=== PATIENT | female | born 1990 | race Caucasian/White ===

== ENCOUNTER 2024-01-11 12:13 | Emergency (ER) | payer OTHER, SELFPAY ==
--- NOTE | ~2024-01-11 | XR_ITS ---
Clinical Indication: Cough PA and lateral views of the chest: Comparison: None Findings: The lungs are clear, without evidence of focal consolidation or pleural effusion. Cardiome diastinal silhouette is within normal limits. Bones and soft tissues are unremarkable. Impression: Normal chest. Reviewed, dictated and finalized at location . T TIME NANNY Impression: Normal chest.
--- NOTE | 2024-01-11 12:36 | ED_ITS ---
HPI - URI/Sore Throat General Chief Complaint: Upper Respiratory Infection Stated Complaint: chest congestion, nasal drainage Time Seen by Provider: 01/11/24 12:29 Source: patient Mode of arrival: ambulatory Limitations: no limitations History of Present Illness HPI Narrative: Tyra is a 33-year-old female patient presenting to the clinic today with complaints chest congestion and nasal drainage x2 days. She reports she was working down in her mother's basement to over the summer-she was cleaning and suspected that there was some black mold in the basement. Started having some shortness of breath- this prompted her to come into the clinic. No history of asthma. Patient does not smoke. History hyperlipidemia, hypertension, and type 2 diabetes. States she wants to be checked for pneumonia or bronchitis. MD elicited complaint: cough, nasal congestion and other (Chest congestion) Related Data Home Medications Medication Instructions Recorded Confirmed atorvastatin 20 mg tablet 20 mg PO DAILY 01/11/24 01/11/24 empagliflozin 10 mg tablet 10 mg PO DAILY 01/11/24 01/11/24 (Jardiance) lisinopril 5 mg tablet 5 mg PO DAILY 01/11/24 01/11/24 metformin 500 mg tablet,extended 1,500 mg PO DAILY 01/11/24 01/11/24 release 24 hr tirzepatide 2.5 mg/0.5 mL 2.5 mg subcut WEEKLY 01/11/24 01/11/24 subcutaneous pen injector (Mounjaro) Allergies Allergy/AdvReac Type Severity Reaction Status Date / Time No Known Allergies Allergy Verified 01/11/24 12:50 Review of Systems Review of Systems: Pertinent positives per HPI. Patient denies any fever, chills, rash, headache, visual changes, dizziness, chest pain, palpitations, nausea, vomiting, diarrhea, constipation, abdominal pain, or any urinary issues. PMFSH Comments At the time of my signature, I reviewed and agree with the nursing past medical, surgical, social, and family history. There is no relevant family history per tinent to the patient complaint. Exam Narrative: General: Well-developed, morbidly obese, in no apparent distress Head: Normocephalic, atraumatic Eyes: Pupils equally round and reactive to light bilaterally, EOM intact, sclera and conjunctive clear, no discharge, lids normal Ears: TMs intact and clear, ear canals clear, no drainage, grossly hearing normal. Nose: Nares patent, no discharge, no inflammation, no sinus tenderness. Mouth: Oral pharynx without lesions or masses, good dentition, MMM. Neck: Supple, trachea midline, no enlargement of anterior or posterior cervical nodes, no thyroid masses or goiter palpable. Cardio: Regular rate and rhythm, s1 and s2 normal, no murmur appreciated. Resp: Clear to auscultation bilaterally, no rhonchi, rales, wheezing or rubs Course Course Emergency Course: Portions of this record may have been created with voice recognition software. Level of Care: Express Care Visit Vital Signs Vital signs: Vital signs reviewed MDM - URI/Sore Throat MDM Narrative Medical decision making narrative: At the time of visit patient is resting comfortably on the exam table. Patient appears to be nontoxic. Diagnostics: Chest x-ray is negative for any acute cardiopulmonary process. Plan: I suspect patient has URI with cough and congestion. Prescription for albuterol inhaler was sent to the pharmacy Supportive measures were discussed with the patient and they voiced understanding discharge instructions and agrees to treatment plan. Return precautions reviewed Differential Diagnosis Differential diagnosis: Likely upper respiratory infection, otitis media, sinusitis, viral infection, bronchitis, influenza, pharyngitis and other (COVID) Imaging Data Radiologist's impression: ITS Impressions Chest X-Ray 01/11/24 13:03 Impression: Normal chest. Discharge Plan Discharge Clinical Impression: Upper respiratory infection with cough and congestion Patient Disposition: Home, Self-Care Condition: Stable Instructions: Antibiotic Form, Upper Respiratory Infection (ED) Additional Instructions: Chest x-rays negative for any sign of bronchitis or pneumonia. Take prescription medications only as prescribed-albuterol inhaler May take Sudafed as needed for nasal congestion May take DayQuil/NyQuil for cold/flu symptoms Increase fluids and stay well hydrated Tylenol/motrin for pain/fever Flonase and OTC antihistamines as directed Vicks vapor rub to open sinuses Sinus rinses for congestion Cepacol spray, cough drops, throat lozenges, warm tea with honey/lemon, gargle salt water to soothe throat BRAT diet for diarrhea Clear liquids x 24 hours then advance as tolerated for nausea/vomiting Go to the ED if you develop a worsening in your condition- high fever not controlled by Tylenol or Motrin, dehydration, weakness, lethargy, shortness of breath, or chest pain. Follow up with your PCP in 3-5 days if symptoms persist. Prescriptions: New albuterol sulfate 90 mcg/actuation HFA aerosol inhaler 2 puff inhalation Q4-6H PRN (Reason: shortness of breath or wheezing) 30 Days Qty: 8.5 0RF No Action atorvastatin 20 mg tablet 20 mg PO DAILY lisinopril 5 mg tablet 5 mg PO DAILY metformin 500 mg tablet extended release 24 hr 1,500 mg PO DAILY Jardiance 10 mg tablet 10 mg PO DAILY Mounjaro 2.5 mg/0.5 mL pen injector 2.5 mg SUBCUT WEEKLY Follow-up/Referrals: Julian,Salomón Bartlett MD [Primary Care Provider] - Time of Disposition: 13:12 Quality NIHSS Nursing Documentation ED NIHSS nursing documentation: reviewed/agree
[2024-01-11 12:53] VITALS: BP 130/85; PULSE 106; RESP 16; TEMP 36.7; O2SAT 99
== END 2024-01-11 13:16 | disposition home or self-care (01) ==
PROVIDERS: Emergency Provider Nurse Practitioner Family; PCP Internal Medicine
DX: J06.9 Acute upper respiratory infection, unspecified (principal); R05.9 Cough, unspecified; E11.9 Type 2 diabetes mellitus without complications; E78.00 Pure hypercholesterolemia, unspecified
CPT/HCPCS: 71046; 99203; G0463

== ENCOUNTER 2024-08-12 11:37 | Emergency (ER) | payer OTHER, SELFPAY ==
--- NOTE | ~2024-08-12 | XR_ITS ---
XR foot LT min 3V Ordering provider: Adam Chandler APRN History: . fall yesterday, Lt great toe pain, distal dorsal pain . Comparison: None. FINDINGS: BONES: Fracture at the base of the distal phalanx of the left big toe is noted medially. No displacement see n. JOINT SPACES: Narrowing of the proximal and distal interphalangeal joints. No tarsal coalition. SOFT TISSUES: Ossification of the insertion of the tendo Achilles. IMPRESSION: Fracture at the base of the distal phalanx of the left big toe.. Reviewed, dictated and finalized at location A.
[2024-08-12 11:51] VITALS: BP 145/77; PULSE 95; RESP 14; TEMP 36.6; O2SAT 100
--- NOTE | 2024-08-12 12:44 | ED_ITS ---
HPI - Extremity Injury (Lower) General Chief Complaint: Extremity Injury, Lower Stated Complaint: Fell, think I broke left big toe Time Seen by Provider: 08/12/24 11:55 Source: patient and RN notes reviewed Mode of arrival: ambulatory Limitations: no limitations History of Present Illness HPI Narrative: 33-year-old female Presents Express Care complaining of injury to left toe. Patient reports was walking outside yesterday when she tripped in mud. Patient fell for landing on her left knee injuring her left foot. Patient denies any her head, loss of consciousness, neck pain, back pain, abdominal pain, nausea, vomiting, vaginal bleeding, any other injuries. Patient is 9 weeks . Patient denies any concerns about her . Patient's tetanus is up-to-date. Patient is complaining left great toe pain and swelling. Patient says she is able to bear weight on her left foot but is tender. Patient does have abrasion on her left knee but denies any pain to her left knee. Patient has a decent significant past medical history. Related Data Home Medications ?Medication ?Instructions ?Recorded ?Confirmed ?Last Taken ?Type atorvastatin 20 mg tablet 20 mg PO DAILY 01/11/24 08/12/24 Unknown History empagliflozin 10 mg tablet 10 mg PO DAILY 01/11/24 08/12/24 Unknown History (Jardiance) lisinopril 5 mg tablet 5 mg PO DAILY 01/11/24 08/12/24 Unknown History metformin 500 mg tablet,extended 1,500 mg PO DAILY 01/11/24 01/11/24 Unknown History release 24 hr tirzepatide 2.5 mg/0.5 mL 2.5 mg subcut WEEKLY 01/11/24 08/12/24 Unknown History subcutaneous pen injector (Mounjaro) DAILY 08/12/24 Unknown History aspirin 81 mg tablet,delayed 81 mg PO DAILY 08/12/24 08/12/24 Unknown History release (Adult Low Dose Aspirin) Allergies Allergy/AdvReac Type Severity Reaction Status Date / Time No Known Allergies Allergy Verified 08/12/24 11:59 Review of Systems Review of Systems: CONSTITUTIONAL: Denies fever, chills, or sweats. EYES: Denies visual changes, redness, or discharge. ENT: Denies rhinorrhea, congestion, sore throat, or otalgia. CARDIOVASCULAR: Denies chest pain, palpitations, or edema. RESPIRATORY: Denies cough or dyspnea. GASTROINTESTINAL: Denies abdominal pain, nausea, vomiting, or diarrhea. GENITOURINARY: Denies dysuria or hematuria. SKIN: Denies rash, wound, or itching. Positive for abrasion to the left knee. MUSCULOSKELETAL: Denies back pain, joint pain, or myalgia. Positive for left great toe injury and swelling NEUROLOGIC: Denies headache, numbness, or weakness. PSYCHIATRIC: Denies anxiety or depression. All other systems reviewed are negative, except as documented in HPI. PMFSH Comments At the time of my signature, I reviewed and agree with the nursing past medical, surgical, social, and family history. There is no relevant family history pertinent to the patient complaint. Exam Narrative: GENERAL: This is a well-nourished, well-developed adult, in no apparent distress. They are non ill-appearing, nontoxic appearing. HEAD: normocephalic, atraumatic. EYES: Sclera clear/white. Vision is grossly intact. Conjunctiva normal. Extraocular movement intact. EARS: External ears normal Hearing grossly intact. NOSE: External nose normal THROAT: Mucous membranes moist NECK: Neck supple CARDIOVASCULAR: Regular rate and rhythm RESPIRATORY: Respiratory rate normal, respiratory effort nonlabored, no respiratory distress NEURO: awake, alert, and oriented to person, place and time. There were no obvious focal neurologic abnormalities. EXTREMITIES: Left foot: No obvious deformity, injury, swelling, bruising, redness to foot. There is swelling and bruising to the left great toe. It is tender to palpate. Normal dorsiflexion plantar flexion left foot. Negative Lockwood's test. Capillary refill less than 3 seconds. Left pedal Pulse 2 +palpable. Normal sensation. Neurovascular status intact distal injury. Patient can move all her toes. SKIN: Left knee: There is abrasion to the anterior surface is knee. No surrounding cellulitis induration, no area of fluctuance, no exudate. No bony tenderness. Valgus or varus laxity. Left knee nontender through full range of motion. BACK: Nontender without deformity. Course Course Emergency Course: Portions of this record may have been created with voice recognition software Level of Care: Express Care Visit Vital Signs Vital signs: Vital Signs Temperature 98 F 08/12/24 11:51 Pulse Rate 95 08/12/24 11:51 Respiratory Rate 14 08/12/24 11:51 Blood Pressure 145/77 H 08/12/24 11:51 Pulse Oximetry 100 08/12/24 11:51 Oxygen Delivery Room Air 08/12/24 11:51 Temperature 98 F 08/12/24 11:51 Pulse Rate 95 08/12/24 11:51 Respiratory Rate 14 08/12/24 11:51 Blood Pressure 145/77 H 08/12/24 11:51 Pulse Oximetry 100 08/12/24 11:51 Oxygen Delivery Room Air 08/12/24 11:51 Reviewed MDM - Extremity Injury (Lower) MDM Narrative Medical decision making narrative: Tetanus is up-to-date. Patient denies any abdominal injury or any injury that is affecting her . Patient denies any abdominal pain, vaginal bleeding, nausea, abdominal cramping or any other symptoms. X-ray of left foot showed nondisplaced fracture the base of the distal phalanx of the left great to e. Patient placed in a postop shoe. Patient has a follow-up with OB coming up, advised her to contact OB about her fall, patient has no complaints today. Discussed physical exam findings. Advised supportive measures and signs/symptoms to go to the ER. Pt is appropriate for outpt treatment and f/u. Differential Diagnosis Differential diagnosis: Likely fracture of toe and other (Foot fracture, toe sprain, complication) Imaging Data Radiologist's impression: ITS Impressions Foot X-Ray 08/12/24 12:58 IMPRESSION: Fracture at the base of the distal phalanx of the left big toe.. Critical Care Time Critical Care Time Critical Care Time: No Discharge Plan Discharge Clinical Impression: Fracture of distal phalanx of great toe Qualifiers: Encounter type: initial encounter Fracture type: closed Fracture alignment: nondisplaced Laterality: left Qualified Code(s): S92.425A - Nondisplaced fracture of distal phalanx of left great toe, initial encounter for closed fracture Abrasion of knee, left Qualifiers: Encounter type: initial encounter Qualified Code(s): S80.212A - Abrasion, left knee, initial encounter Patient Disposition: Home Condition: Stable Instructions: Toe Fracture (ED) Additional Instructions: Your x-ray of your left foot showed a fracture at the base appear distal phalanx of your left great toe. Please wear the postop shoe when ambulating. You may bear weight as tolerated. You may apply ice to help with swelling 20 minutes at a time a few times a day. You may take Tylenol as needed for pain. Elevate your foot when resting. Follow-up with your PCP or an orthopedist for further evaluation and management of your toe fracture. Please contact your OB about your fall. If he develops any abdominal pain, vaginal bleeding, redness, swelling, discharge, pain from your wound, or any other concerns please go to the ER immediately. Patient Language: Arabic Prescriptions: No Action atorvastatin 20 mg tablet 20 mg PO DAILY lisinopril 5 mg tablet 5 mg PO DAILY metformin 500 mg tablet extended release 24 hr 1,500 mg PO DAILY Jardiance 10 mg tablet 10 mg PO DAILY Mounjaro 2.5 mg/0.5 mL pen injector 2.5 mg SUBCUT WEEKLY albuterol sulfate 90 mcg/actuation HFA aerosol inhaler 2 puff inhalation Q4-6H PRN (Reason: shortness of breath or wheezing) 30 Days Qty: 8.5 0RF DAILY aspirin [Adult Low Dose Aspirin] 81 mg tablet,delayed release (DR/EC) 81 mg PO DAILY Follow-up/Referrals: Julian,Salomón Bartlett MD [Primary Care Provider] - Roshan Hurtado MD [Physician] - Time of Disposition: 13:15
== END 2024-08-12 13:26 | disposition home or self-care (01) ==
PROVIDERS: PCP Internal Medicine
DX: O9A.211 Injury, poisoning and certain other consequences of external causes complicating pregnancy, first trimester (principal); Z3A.09 9 weeks gestation of pregnancy; S92.425A Nondisplaced fracture of distal phalanx of left great toe, initial encounter for closed fracture; W01.0XXA Fall on same level from slipping, tripping and stumbling without subsequent striking against object, initial encounter; S80.212A Abrasion, left knee, initial encounter; O16.1 Unspecified maternal hypertension, first trimester; O99.281 Endocrine, nutritional and metabolic diseases complicating pregnancy, first trimester; E78.00 Pure hypercholesterolemia, unspecified; O24.911 Unspecified diabetes mellitus in pregnancy, first trimester; Z79.84 Long term (current) use of oral hypoglycemic drugs
CPT/HCPCS: 73630; 99214; G0463

== ENCOUNTER 2024-10-22 08:30 | Outpatient (CLI) | payer OTHER, SELFPAY ==
--- OUTSIDE RECORDS SUMMARY | 2018-12-28 01:53 | XMS_ITS | Continuity of Care Document ---
Author Organization [facility] Address [address] [place] [phone] Phone Care Team Providers Care Auto Body Mechanic Apprentice Name Role Phone Amaury Sue MD Unavailable Unavailable Medications Medication Instructions Dosage Effective Dates (start - stop) Status Comments Zithromax Z-Ethan 250 mg tablet take 2 tablet by oral route every day for 1 day then 1 tablet (250 mg) by oral route once daily for 4 days 500 MG - No Longer Active Advance Directives Directive Yes / No Effective Date File Name No Information Encounters Encounter Description Practice Location Reason(s) For Visit Diagnoses Date Provider Providers Copied on Encounter [facility], [address] [place] [address], [place], [place], [id number], [phone] No Information [address] [facility]. [address] [place] [address], [id number] , . tel: [phone] Family History Family Member Type Diagnosis Age At Onset No Information Payers Payer name Insurance type Covered republican ID Authoriza tion(s) No Information Social History Type Description Quantity Date Captured Comments Sex Female Smoking Status No Information Chief Complaint And Reason For Visit No Information Reason For Referral Reason For Referral No Information History Of Present Illness Encounter Date Complaint History Of Prese nt Illness No Information Functional Status Date Functional Assessmen t No Information Instructions Date Instruction Additional Infor mation No Information Assessments Type Assessment Date No Information Patient Care Teams Name Effective Dates (start - stop) Status Members No Information
--- OUTSIDE RECORDS SUMMARY | 2024-10-20 07:20 | XMS_ITS | Encounter Summary ---
Author Organization [facility] Healthcare Address [address] [place] [address] Care Team Providers Care Grid Maker Name Role Phone Salomón Jordan MD Primary Care Provider [phone] Charlene Sanches MD Unavailable [phone] Reason for Referral * Diagnostic Imaging (Routine) - Pending Review Specialty Diagnoses / Procedures Referred By Oliverio hurst Referred To Contact Diagnoses Encounter for follow-up ultrasound of anatomy Procedures US Ob Limited Cynthia Kay MD [address] [address] Phone: tel: fax: [facility] (All Locations) Referral ID Status Reason Start Date Expiration Date V isits Requested Visits Authorized [id number] Pending Review 10/20/2024 11/19/2025 1 1 * Diagnostic Imaging (Routine) - Closed Specialty Diagnoses / Procedures Referred By Oliverio hurst Referred To Contact Diagnoses Pre-existing type 2 diabetes mellitus during , antepartum Procedures US OB detail anatomy single or first gestation Cynthia Kay MD [address] [address] Phone: tel: fax: [facility] (All Locations) Referral ID Status Reason Start Date Expiration Date Visits Re quested Visits Authorized [id number] Closed 08/30/2024 09/29/2025 1 1 Reason for Visit * Diagnostic Imaging (Routine) - Closed Specialty Diagnoses / Procedures Referred By Oliverio t Referred To Contact Diagnoses Pre-existing type 2 diabetes mellitus during , antepartum Procedures US OB detail anatomy single or first gestation Cynthia Kay MD [address] [facility] [address] [place] [address] Phone: tel: fax: [facility] (All Locations) Referral ID Status Reason Start Date Expiration Date Visits Re quested Visits Authorized [id number] Closed 08/30/2024 09/29/2025 1 1 Encounter Details Date Type Department Care Team (Latest Contact Info) Description 10/20/2024 7:20 AM CDT - 10/20/2024 11:59 PM CDT Hospital Encounter [facility] - Ultrasound [address] [facility], 7th Floor, [address] [place] [address] Encounter for follow-up ultrasound of anatomy (Primary Dx); Pre-existing type 2 diabetes mellitus during , antepartum Discharge Disposition: Discharge to home or self care Social History Tobacco Use Types Packs/Day Years Used Date Smoking Tobacco: Never Smokeless Tobacco: Never AUDIT-C Answer Date Recorded Q1: How often do you have a drink containing alcohol? Never 08/30/2024 Q2: How many drinks containi ng alcohol do you have on a typical day when you are drinking? Patient does not drink Q3: How often do you have si x or more drinks on one occasion? 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 Gender Identity Female 03/07/2021 4:29 PM RESEARCH ASSOCIATE [employer] Sexual Orientation Straight 11/08/2020 9: 49 AM CDT documented as of this encounter Medications at Time of Discharge acetone, urine, test strip Check urine ketones if you blood sugar is greater that 200 100 strip 2 11/06/2020 alcohol swabs pads, medicated Apply 1 each topically 4 (four) times a day 100 each 3 08/30/2024 aspirin 81 mg enteric coated tablet Take 81 mg by mouth daily BD Insulin Syringe Ultra-Fine 1 mL 30 gauge x 1/2 syringe Use to inject NPH insulin in the morning and at bedtime 100 each 3 12/19/2020 blood glucose diagnostic strip 1 each by other route 4 (four) times a day 100 strip 11 08/30/2024 blood-glucose sensor (Dexcom G7 Sensor) device 1 Units continuously Change sensor every 10 days 3 each 11 08/30/2024 blood-glucose,rec eiver,cont (Dexcom G7 Transplant Nurse Practitioner) misc 1 Units continuously 1 each 08/30/2024 cholecalciferol (VITAMIN D-3) 3,000 unit tablet Take 5,000 Units by mouth daily FreeStyle Radames 14 Day [place] misc USE CONTINUOUSLY TO TEST 4 TIMES A DAY 10/27/2020 FreeStyle Radames 14 Day Sensor kit USE CONTINUOUSLY TO TEST BLOOD SUGARS 4 TIMES A DAY 10/27/2020 glucagon (BAQSIMI) 3 mg/actuation spray,non-aerosol Indications:patie nt with diabetes mellitus at risk of hypoglycemia Administer 1 spray into one nostril as needed (Hypoglycemia) 2 each 3 08/30/2024 insulin aspart (NovoLOG) 100 unit/mL (3 mL) pen for injection Inject 12 units with breakfast, 20 units with lunch and 26 units with dinner 30 mL 3 03/15/2021 insulin lispro (HumaLOG, ADMELOG) 100 unit/mL pen for injection Inject 6 units under the skin with breakfast, lunch and dinner. 15 mL 3 09/13/2024 lancets 33 gauge misc 1 Units 4 (four) times a day 100 each 11 08/30/2024 levothyroxine (SYNTHROID) 25 mcg tablet 01/15/2021 lisinopriL (PRINIVIL,ZESTRIL ) 5 mg tablet 11/30/2020 metFORMIN (GLUCOPHAGE) 1,000 mg tablet metformin 1,000 mg tablet TAKE 1 TABLET BY MOUTH TWICE DAILY 10/09/2009 pen needle, diabetic 33 gauge x 5/32 needle 5 INJECTIONS DAILY DIRECTED 200 each 2 08/30/2024 PNV no.95/ferrous fum/folic ac ( ORAL) Take by mouth vit D3-vit X-[id number]-[id number] [id number] mxhf-uce-hm-mg tablet Take by mouth documented as of this encounter Discharge Disposition Disposition Code Departure Means Destination Discharge to home or self care documented in this encounter Plan of Treatment Scheduled Orders Name Type Priority Associated Diagnoses Orde r Schedule US Ob Limited Imaging Schedule Routine , Read Routine (OP Routine) Encounter for follow-up ultrasound of anatomy Expected: 11/02/2024, Expires: 10/20/2025 documented as of this encounter Procedures Procedure Name Priority Date/Time Associated Diagnosis Comments US OB DETAIL ANATOMY SINGLE OR FIRST GESTATION Schedule Routine, Read Routine (OP Routine) 10/20/2024 7:20 AM CDT Pre-existing type 2 diabetes mellitus during , antepartum documented in this encounter Results * US OB detail anatomy single or first gestation (10/20/2024 7:20 AM CDT) Fetus# Fetus1 VIEWPOINT Estimated Weight 278 g&grams VIEWPOINT Placenta Details posterior, Previa-no, no placental masses VIEWPOINT Presentation Vertex VIEWPOINT Anatomical Region Laterality Modality Body N/A Ultrasound 10/20/2024 7:21 AM CDT Impressions 10/20/2024 9:12 AM CDT Single IUP at 19w 1d for specialized anatomic assessment. 1. The biometry is appropriate for gestational age. EFW 47%. 2. The anatomy assessment is incomplete as above. The structures that were visualized today appear normal. No major structural malformations identified within the limits of ultrasound. 3. Transvaginal imaging demonstrates a normal cervical length. Narrative Procedure Note Martha Felix MD - 10/20/2024 IMPRESSION: Single IUP at 19w 1d for specialized anatomic assessment. 1. The biometry is appropriate for gestational age. EFW 47%. 2. The anatomy assessment is incomplete as above. The structures that werevisualized today appear normal. No major structural malformationsidentified within the limits of ultrasound. 3. Transvaginal imaging demonstrates a normal cervical length. Cynthia Kay MD IMG OB US PROCEDUR ES Final Result documented in this encounter Visit Diagnoses Diagnosis Encounter for follow-up ultrasound of anatomy- Primary Pre-existing type 2 diabetes mellitus during , antepartum documented in this encounter Care Teams Grid Maker Relationship Specialty Start Date End Date Salomón Jordan MD PCP - General Internal Medicine 10/27/20 Charlene Sanches MD [address] [place] [address] Referring Physician Obstetrics and Gynecology 10/27/20 documented as of this encounter
--- NOTE | 2024-10-22 | ECHO_ITS ---
Patient Info Name: Solange Ozuna Age: 34 years : 1990 Gender: Female Ht: 64 in Wt: 205 lbs BSA: 2.09 m2 HR: 88 bpm BP: 99 / 65 mmHg Technical Quality: Good Exam Date: 10/22/2024 9:04 AM Patient Status: O Admit Date: 10/22/2024 Exam Type: CA echo doppler color flow Complete two-dimensional, color flow and Doppler transthoracic echocardiogram is performed. Medical Insurance Biller: Neda Gomez Attending Provider: Tanya Dunne Summary 1. Complete two-dimensional, color flow and Doppler transthoracic echocardiogram is performed. 2. Left ventricular chamber dimension is normal. 3. Left ventricular systolic function is normal, estimated at 60-65. 4. E/e' 9 is minimally elevated. 5. There is trace mitral valve regurgitation. Left Ventricle E/e' 9 is minimally elevated. Left ventricular chamber dimension is normal. Left ventricular systolic function is normal, estimated at 60-65. The left ventricular diastolic function is normal. Right Ventricle Right ventricular chamber dimension is normal. Right ventricular systolic function is normal and with normal TAPSE 2.3 cm. Left Atria Left atrial chamber dimension is normal. Right Atria Right atrial chamber dimension is normal. Aortic Valve The aortic valve is trileaflet. There is no aortic valve stenosis. There is no aortic valve regurgitation. Pulmonic Valve There is no pulmonic regurgitation. Mitral Valve There is no mitral valve stenosis. There is trace mitral valve regurgitation. Tricuspid Valve There is no tricuspid valve regurgitation. Pericardium/Pleural There is no pericardial effusion. Inferior Vena Cava Normal inferior vena cava with >50% collapse upon inspiration consistent with normal right atrial pressure, 5 mmHg. Aorta The aortic root size at the sinus of Valsalva is normal. Left Ventricular Outflow Tract Name Value Normal LVOT 2D LVOT Diameter 2.0 cm LVOT Doppler LVOT Peak Velocity 140 cm/s LVOT Peak Gradient 8 mmHg LVOT Mean Gradient 5 mmHg LVOT VTI 29 cm LVOT Stroke Volume 91 ml LVOT CO 8.0 l/min LVOT CI 3.8 l/min/m2 Pulmonic Valve Name Value Normal RVOT Doppler RVOT Peak Velocity 79 cm/s RVOT Peak Gradient 2 mmHg PV Doppler PV Peak Velocity 155 cm/s PV Peak Gradient 10 mmHg Mitral Valve Name Value Normal MV Diastolic Function MV E Peak Velocity 121 cm/s MV A Peak Velocity 95 cm/s MV E/A 1.3 MV Decel Time (PW) 238 ms MV Annular TDI MV E/e' (Septal) 11.1 MV E/e' (Lateral) 7.8 MV E/e' (Average) 9.5 Tricuspid Valve Name Value Normal Estimated PAP/RSVP RA Pressure 5 mmHg <=5 Aortic Valve Name Value Normal AV Doppler AV Peak Velocity 183 cm/s AV Peak Gradient 13 mmHg AV Area (Cont Eq Madi) 2.4 cm2 AV DI (Madi) 0.76 AV Regurgitation 2D LVOT Area 3.1 cm2 Ventricles Name Value Normal LV Dimensions 2D/MM IVS Diastolic Thickness (2D) 1.0 cm 0.6-1.0 LVID Diastole (2D) 4.7 cm 3.8-5.2 LVIW Diastolic Thickness (2D) 1.0 cm 0.6-0.9 LVID Systole (2D) 3.2 cm 2.2-3.5 LVOT Diameter 2.0 cm LV Mass (2D Cubed) 163.29 g 67.00-162.00 LV Mass Index (2D Cubed) 78 g/m2 43-95 Relative Wall Thickness (2D) 0.42 <=0.42 LV Fractional Shortening/Ejection Fraction 2D/MM LV Fractional Shortening (2D) 33 % 27-45 LV EF (2D Teichpaulyz) 61 % LV Diastolic Volume (4C MOD) 93 ml LV EF (4C MOD) 62 % LV Diastolic Volume (2C MOD) 111 ml LV EF (2C MOD) 55 % LV Diastolic Volume (BP MOD) 104 ml 46-106 LV Diastolic Volume Index (BP MOD) 50 ml/m2 29-61 LV Systolic Volume (BP MOD) 45 ml 14-42 LV Systolic Volume Index (BP MOD) 21 ml/m2 8-24 LV EF (BP MOD) 57 % 54-74 LV Diastolic Length (4C) 8.9 cm LV Systolic Length (4C) 7.6 cm LV Stroke Volume (4C MOD) 57 ml Atria Name Value Normal LA Dimensions LA Volume (4C A-L) 55 ml LA Volume (BP A-L) 52 ml RA Dimensions RA Systolic Major R[place]on Length (4C) 4.9 cm 2.2-2.8 RA Area (4C) 11.1 cm2 <=18.0 Report Signatures
--- OUTSIDE RECORDS SUMMARY | 2024-10-22 08:35 | XMS_ITS | Clinical Summary ---
Author Organization [facility] Address [facility] [place] [address] Care Team Providers Care Director Outpatient Services Name Role Phone Salomón Jordan MD Primary Care Provider Charlene Sanches MD Unavailable [phone] Allergies Active Allergy Reactions Criticality Noted Date Comments Cat Dander Hives Medium 08/30/2024 Medications metFORMIN (GLUCOPHAGE) 1,000 mg tablet metformin 1,000 mg tablet TAKE 1 TABLET BY MOUTH TWICE DAILY 0 Active FreeStyle Radames 14 Day Hosmer misc USE CONTINUOUSLY TO TEST 4 TIMES A DAY 1 Active FreeStyle Radames 14 Day Sensor kit USE CONTINUOUSLY TO TEST BLOOD SUGARS 4 TIMES A DAY 1 Active vit D3-vit Z-fnltsungh-aceq [phone] dozc-ldj-jv-mg tablet Take by mouth Active acetone, urine, test strip Check urine ketones if you blood sugar is greater that 200 100 strip 2 1 Active lisinopriL (PRINIVIL,ZESTRI L) 5 mg tablet 1 Active aspirin 81 mg enteric coated tablet Take 81 mg by mouth daily Active PNV no.95/ferrous fum/folic ac ( ORAL) Take by mouth Active BD Insulin Syringe Ultra-Fine 1 mL 30 gauge x 1/2 syringe Use to inject NPH insulin in the morning and at bedtime 100 each 3 1 Active levothyroxine (SYNTHROID) 25 mcg tablet 1 Active insulin aspart (NovoLOG) 100 unit/mL (3 mL) pen for injection Inject 12 units with breakfast, 20 units with lunch and 26 units with dinner 30 mL 3 2 Active cholecalciferol (VITAMIN D-3) 3,000 unit tablet Take 5,000 Units by mouth daily Active alcohol swabs pads, medicated Apply 1 each topically 4 (four) times a day 100 each 3 5 Active lancets 33 gauge misc 1 Units 4 (four) times a day 100 each 11 5 Active blood glucose diagnostic strip 1 each by other route 4 (four) times a day 100 strip 11 5 Active glucagon (BAQSIMI) 3 mg/actuation spray,non-aeroso lIndications:pat ient with diabetes mellitus at risk of hypoglycemia Administer 1 spray into one nostril as needed (Hypoglycemia) 2 each 3 5 Active blood-glucose,re ceiver,cont (Dexcom G7 Biochemistry Technologist) misc 1 Units continuously 1 each 5 Active blood-glucose sensor (Dexcom G7 Sensor) device 1 Units continuously Change sensor every 10 days 3 each 11 5 Active insulin glargine 100 unit/mL (3 mL) pen for injectionIndicat ions:Pre-existin g type 2 diabetes mellitus during , antepartum Inject 16 Units under the skin nightly 4.8 mL 5 Active pen needle, diabetic 33 gauge x 5/32 needle 5 INJECTIONS DAILY DIRECTED 200 each 2 5 Active insulin lispro (HumaLOG, ADMELOG) 100 unit/mL pen for injection Inject 6 units under the skin with breakfast, lunch and dinner. 15 mL 3 5 Active Active Problems Problem Noted Date Diagnosed Date Hypothyroid in , antepartum 08/29/2024 Overview (10/20/2024): History: History of Graves/hyperthyroidism?: No Pre- regimen: None Previously counseled Current regimen: None Plan: [x] Maintain TSH within normal reference range throughout [x] Repeat TSH at least once a trimester if well controlled [x] T1: 3.21 [] T2: [] T3: [] If uncontrolled or if making dose adjustments to medication, repeat every 4-6 weeks until controlled History of section complicating pregnan cy 08/18/2024 Overview (08/31/2024): Underwent IOL at 38w3d for cHTN and T2DM. Arrest of dilation at 6cm with intolerance of labor. Uncomplicated primary CS. See operative note in CareEverywhere 06/06/2021. Strongly desires repeat CS. Delivery planning per primary OB. Supervision of high-risk , first alyssa smith 08/18/2024 Overview (10/20/2024): [x] Co-management [x] Blue Team Referring Provider: Dedrick Dunne [phone] [] PostBeyond or Medicare Insurance [x] Dating Criteria: [place] 07/28/24 with 03/15/24 [x] Labs: Rh [A+], Ab [negative], Rubella [immune], HIV [non-reactive], HepBSAg [non-reactive], HepBSAb [not done], HepBCAb [not done], RPR [non- reactive], Hep C [non-reactive], Varicella [not done], GC/CT [negative/negative], trich [neg]- [] Aneuploidy Screening: counseled and declines [] Carrier Screening: counseled and declines [] Hgb electrophoresis: [x] CBC/Hgb: 13.3/41.4/plt 263 [x] Hgb A1c 07/22/24: 6.1 [x] UCx: 08/16/24: no growth [x] Pap: 07/28/24: NILM; HPV negative [x] LD ASA (if indicated): [] EPDS [ ]; PNBHS referral (if indicated): 2nd Trimester [x] Anatomy ultrasound: wnl [] CBC at 24-28wks: [] Rhogam at 28 wks (if Rh neg): 3rd Trimester [] CBC/HIV/RPR/T&S: [] GBS: [] GC/CT (if indicated): [] testing: Counseling [] MOD: [] Place of delivery: [] Epidural: [] Accepts Blood Products: [] Stop ASA: [] MOC: [] Method of feeding: [] Vp Securities (specifically which provider): [] PP Depression Discussed: [] PP visits scheduled: Vaccines [] Flu Shot (Oct-Jan): [] COVID vaccine: [] Tdap (27-36wks): [] RSV vaccine (32-36wks): [] PP HPV vaccine counseling (<=26 yo): Obesity complicating in first cece r 11/06/2020 Overview (09/10/2024): Pre- BMI: 35 Previously counseled Plan: [x] Low dose ASA starting at 12 weeks See T2DM problem for Duc and testing Assessment & Plan (01/15/2021 7:59 AM ESCROW PROCESSOR): Previously counseled Plan - testing (atarting 32 weeks for T2DM) Generalized anxiety disorder 11/03/2020 Overview (08/31/2024): Reports history of anxiety. Mood stable. Not currently on medications. Will complete counseling if she desires to start medications. Other sleep apnea 11/03/2020 Chronic hypertension affecting 021 Overview (10/20/2024): History: Diagnosis: 2020 Pre- medications: lisinopril 5mg daily Previously counseled Current medication regimen: None Plan: [x] Low dose ASA 81 mg starting at 12 weeks - taking [] Baseline preeclampsia labs (CBC, CMP, UPC 0.1)- records requested 10/20/2024 [] Baseline EKG - scheduled for Friday See T2DM problem for recommendations on serial growth US, testing, and delivery timing Assessment & Plan (05/10/2021 9:12 AM CDT): PreE precautions reviewed with patient again today. Assessment & Plan (01/15/2021 8:02 AM ESCROW PROCESSOR): - Patient previously counseled - current regimen: no medications - BP log reviewed and at goal today - Continue to monitor Pre-existing type 2 diabetes mellitus during , antepartum 11/01/2020 Overview (10/20/2024): History & Counseling Diagnosed age 16 (2007) History of DKA? None Last hemoglobin A1C: 6.1% on June 2024 Pre- regimen: Jardiance 10mg daily, metformin 1000mg BID, Mounjarno 7.5mg/0.5mL Pre- TDD of insulin: none Pre- weight: 206lbs as of 03/23/24 Home blood glucose measurements: Fasting 130-135; random ~120 S/p MFM counseling 08/30/2024 [facility] clinic accounts Current regimen: 10/20/2024- no changes Lantus 20u qHS Lispro 6 units TID with meals Plan - Physician adjusting medication dosage: MFM [x] Recommend weekly review of BG/insulin data to adjust medication dosing [x] Diabetes education [x] Glucagon prescribed - sent 08/30 [x] Referral to ophthalmology for comprehensive eye exam [] Baseline CMP, UPC, TSH- records requested [] HgbA1c qTrimester [x] 1st T: 6.1 [] 2nd T: [] 3rd T: [x] Low dose ASA starting at 12 weeks - already taking [] Baseline EKG, consider maternal ECHO (if long standing disease, other comorbidities) - EKG scheduled [x] 1st trimester anatomy US - 1T dating US normal, defer to specialized anatomy in 2T [x] Specialized anatomy ultrasound at 18-20 weeks [] echocardiogram at 20-22 weeks- scheduled [] Serial growth ultrasounds every 4 weeks- scheduled [] Twice weekly surveillance starting at 32 weeks [] insulin plan by 32 weeks [] Delivery at 44g1p-42z8t (36w0d - 38w6d if has vascular complications or diabetes is poorly controlled) Assessment & Plan (10/20/2024 9:47 AM CDT): BS reviewed with good control. Continue current regimen. Assessment & Plan (09/13/2024 2:01 PM CDT): Reviewed carb recommendations with MFM and then notified pt. Recommend breakfast 30-45g of carbs, lunch 40-60g carbs and dinner 45-60g carbs. Recommend 15g carbs with snacks 2-3 hours after meals. Will refer to diabetes education for appt with this . Plan made to start lispro 6 units with meals. Discussed taking it 10- 15 minutes before meals but only when she knows her food is actually going to be available. Discussed hypoglycemic symptoms and when to verify BS. Pt knows to treat BS <65 and notify our team for possible adjustments. She has already been rx glucagon and has that rx. Rx placed for lispro 6 units with meals. Assessment & Plan (11/06/2020 10:01 AM CDT): History Diagnosed age 17 History of DKA? no Last hemoglobin A1C: 9.0% on 10/26/20 Pre- regimen: glimepiride, metformin Counseling Reviewed with patient that type 2 diabetes is the most common form of pregestational diabetes and is characterized by peripheral insulin resistance. is generally a state of increased insulin resistance, the one exception being late first trimester when relatively higher levels of estrogen may enhance insulin sensitivity and increase the maternal hypoglycemia, especially when associated with nausea and vomiting. As such, insulin requirements will likely change during and frequent monitoring throughout . This in combination with diabetic education, exercise, and diet control will be necessary to achieve optimal glycemic control. We reviewed that goal blood glucose values are generally fasting a premeal glucose of 95 mg/dL or less and 1 hour postprandial glucose of 140 mg/dL or less. We recommend checking blood sugar fasting, before each meal, and 1 hour after eating. The patient should also check urine ketones when their glucose level exceeds 200 mg/dL and should have glucagon available in case of hypoglycemic episodes. We also reviewed the increased maternal and risks associated with type 2 diabetes in . Discussed that major congenital anomalies (cardiac, neurologic and skeletal) are the leading cause of mortality in pregnancies complicated by diabetes and is directly related to hemoglobin A1C values. This patient has an elevated A1C. A concentration near 10% is associated with a anomaly rate of 20-25%, has an elevated A1C. A concentration near 12% is associated with a anomaly rate of 50%. Other risks include large for gestational age or small for gestational age infants, delivery, and stillbirth. Maternal risks discussed include exacerbation of diabetes-related complications (particularly retinopathy and nephropathy), hypertensive disorders of , shoulder dystocia, and need for section. Also discussed that outcomes are best with optimal glycemic control. Lastly discussed that insulin drip will likely be required in labor. Plan - Current regimen: NPH 30 units qAM NPH 40 units QHS Lispro - Physician adjusting insulin dosage: MFM [] Glucagon prescribed [] Referral to ophthalmology for comprehensive eye exam [] Baseline CMP, UPC, and 24 hour urine protein [] ASA starting at 12 weeks gestation [] Baseline EKG [] Specialized anatomy ultrasound at 18-20 weeks [] echocardiogram (if Hgb A1C >8.5%) [] Serial growth scans starting at 24 weeks [] Twice weekly testing starting at 32 weeks [] Delivery at 39 0/7-39 6/7. (36 0/7 to 38 6/7 with vascular complications or poorly controlled) Anxiety 07/17/2020 Assessment & Plan (01/15/2021 8:01 AM ESCROW PROCESSOR): - mood overall stable on no medications - continue to monitor Diabetic peripheral neuropathy 07/17/2020 Albuminuria 04/24/2017 Hypercholesterolemia 04/25/2007 Estimated Date of Delivery Comme nts Yes 03/15/2025 Based on Ultraso und, reported under records received, no formal report to review, p12/43 Resolved Problems Problem Noted Date Diagnosed Date Resolved Date Vaccine counseling 12/04/2020 2 Overview (02/12/2021): Reviewed our strong recommendation for her to get a COVID vaccine in . We discussed: - COVID-19 infections pose higher risk for both her and her fetus during . Risks for her include need for ICU admission, ventilator support, ECMO, and . Risks for the fetus include IUGR, brith. - COVID-19 vaccine can prevent 94-95% of infections with low side effect and risk profile - Reviewed that /lactating women were excluded from the trials. Although theoretical risk low. Specifically, the vaccine has been tested in rigorous trials. It is not live vaccine, it does not cause infection, it does not enter a cell's nucleus, it does not change anyone's DNA, and it degrades quickly in the body. - Reviewed that now over 150,000 women have been vaccinated without increased risks for mom, baby or the . - Discussed that we recommend a COVID vaccine at any stage of or while . 02/12/2021 Patient declines vaccination. Assessment & Plan (01/15/2021 8:00 AM ESCROW PROCESSOR): - Reviewed strong recommendation for COVID vaccination in - Patient contemplative Abdominal pain 11/06/2020 09/01/2024 Acute upper respiratory infection 11/06/2020 09/01/2024 Gallstone 11/06/2020 09/01/2024 Rash 11/06/2020 09/01/2024 Right upper quadrant pain 11/06/2020 Diabetes mellitus during pre gnancy, antepartum 11/01/2020 08/18/2024 Overview (05/29/2021): TYPE II DIABETES: Previously counseled Plan for weekly logs to [facility] for review S/p specialized US Echo on 02/12/2021 nml CURRENT REGIMEN: 05/29/2021 Lantus: 46 qAM / 48 units qHS Lispro: Metformin 1000 BID [x] ASA at 12 weeks [x] Baseline labs- 24 hour urine complete, CMP wnl [x] Eye exam- scheduled in Feb 2021 [x] EKG- reviewed by Dr. Lackey, possible LVH- recommend maintaining good blood pressure control - Serial growths - testing at 32 weeks and occur twice weekly until delivery - Recommend delivery at 39 weeks via IOL Assessment & Plan (05/10/2021 9:11 AM CDT): BS log reviewed with elevated fastings. Patient denies lows and checked a midnight BS yesterday that was normal. Reviewed with Dr. Banuelos and plan to increase lantus to 54 units at bedtime and check 2 am BS for the next few days and send a log Friday to [facility] for review. Encouraged pepcid for heartburn instead of tums. Assessment & Plan (04/12/2021 9:25 AM ESCROW PROCESSOR): BS log reviewed with Dr. Posada. Continues to have elevated fastings and PCs. Discussed good dietetic choices and importance of eating a protein bedtime snack. Will send BS log Friday for review. Assessment & Plan (01/15/2021 8:00 AM ESCROW PROCESSOR): CURRENT REGIMEN: 01/08/2021 Metformin 1000 mg bid NPH Humalog 02/07/16 - Patient previously counseled - Reviewed blood glucose logs today and at goal - Continue ASA - Plan for specialized anatomy on 02/12 Assessment & Plan (12/04/2020 10:03 AM CDT): Strongly encouraged she continue with weekly logs to [facility] for review. If she is having highs or lows prior to her weekly logs she knows she can contact our office to discuss. Discussed importance of tight glycemic control. BS log reviewed with Dr. Han and plan to only increase her lunch time lispro to 12. Will have pt send repeat log in 1 week. Ok to only check fastings and 1 hour PC and if she feels low. Plan for baseline EKG and CMP today. She submitted a 24 hour urine to an outside hospital and will have labs faxed to our office. She has an eye exam scheduled. She meets today again with diabetes team here. Supervision of high-risk pre gnancy, unspecified trimester 11/01/2020 08/18/2024 Overview (05/10/2021): [x] Co-management vs. [] Full [facility] Care; [] Red Team [x] Blue Team Referring Provider: Emilia Post [phone] [] or Medicare Insurance [x] Dating Criteria: LMP 08/24/20 05/31/21 [x] Labs: Rh [A+], Ab [negative], Rubella [immune], HIV [non-reactive], HepBSAg [non-reactive], RPR [non-reactive], GC/CT [negative/negative] [x] Genetic Screening: LR NIPT [x] CBC/Hgb 13.2/39.8/plt 345 [x] UCx: 10/27/20: 25,000-50,000 CFU/mL GBS [x] Pap: 08/31/18: NILM [x] LD ASA (if indicated) starting at 12 weeks: discussed and started [] EPDS [ ]; PNBHS referral (if indicated) 2nd Tri Labs: [x] Anatomy ultrasound: complete [x] CBC 24-28wks: [x] Flu Shot (Oct-Jan):12/04SM [x] Tdap (27-36wks): [x] COVID Vaccine: Declined on 02/12/2021 3rd Tri Labs and delivery with primary OB. Recommend IOL at 39 weeks. Baby AGA at the 69% and vertex. No need for scheduled C/S at this time. GBS positive Assessment & Plan (01/15/2021 8:00 AM ESCROW PROCESSOR): - Continue co-management with Dr. Josseline Post Encounters Date Type Department Care Team Description 10/20/2024 8:40 AM CDT Office Visit [facility] Medicine Maternal- Medicine [address] [place] [address] 7th [address] [place] [phone] Chronic hypertension affecting (Primary Dx); Generalized anxiety disorder; History of section complicating ; Hypothyroid in , antepartum; Obesity affecting in first trimester, unspecified obesity type; Pre-existing type 2 diabetes mellitus during , antepartum; Supervision of high-risk , first trimester 10/20/2024 7:20 AM CDT - 10/20/2024 11:59 PM CDT Hospital Encounter [facility] - Ultrasound [address] [place] [address], 7th Floor, [address] [place], [place] [phone] Encounter for follow-up ultrasound of anatomy (Primary Dx); Pre-existing type 2 diabetes mellitus during , antepartum Discharge Disposition: Discharge to home or self care 10/12/2024 Documentation [facility] Medicine Maternal- Medicine [facility] [address] [facility] [address] [place] [address] Viktoria Soriano MD Glycemic control meeting 10/06/2024 10:00 AM CDT Clinical Support [facility] Endocrinology Metabolism and Lipid [address] [facility] 13th [place] [address] [place] [phone] Pre-existing type 2 diabetes mellitus during , antepartum (Primary Dx) 10/05/2024 Documentation [facility] Maternal- Medicine [address] [place] [phone] Viktoria Soriano MD Glycemic control meeting 09/28/[address] [facility] [address] [place] [address] Viktoria Soriano MD Glycemic control meeting 09/21/2024 Documentation [facility] Maternal- Medicine [address] [place] [phone] Viktoria Soriano MD Glycemic control meeting 09/13/2024 1:40 PM CDT Telemedicine [facility] Maternal- Medicine [address] [place] [address] 7[address] [place] [phone] Chronic hypertension affecting (Primary Dx); Generalized anxiety disorder; History of section complicating ; Hypothyroid in , antepartum; Obesity affecting in first trimester, unspecified obesity type; Pre-existing type 2 diabetes mellitus during , antepartum; Supervision of high-risk , first trimester 09/13/2024 Orders Only [facility] Maternal- Medicine [address] [place] [address] 7th [address] [place] [phone] Doretha Hoff, RN Diabetic peripheral neuropathy (HCC) (Primary Dx); Supervision of high-risk , first trimester; Pre-existing type 2 diabetes mellitus during , antepartum 09/07/2024 Documentation [facility] Maternal- Medicine [address] [place] [phone] Viktoria Soriano MD Glycemic control meeting 08/30/2024 9:30 AM CDT Office Visit [facility] Maternal- Medicine [address] [place] [address] 7[address] [place] [phone] Supervision of high-risk , unspecified trimester (Primary Dx); Pre-existing type 2 diabetes mellitus during , antepartum; Chronic hypertension affecting ; Obesity affecting in first trimester, unspecified obesity type; Supervision of high-risk , first trimester 08/30/2024 8:30 AM CDT - 08/30/2024 11:59 PM CDT Hospital Encounter [facility] - Ultrasound [address] [facility], 7th Floor, [address] [place] [address] Supervision of high-risk , unspecified trimester Discharge Disposition: Discharge to home or self care 08/30/2024 Orders Only [facility] Medicine Maternal- Medicine [address] [facility] 7th Floor [address] [place] [phone] Doretha Bautista RN 08/17/2024 Telephone [facility] Medicine Obstetrics and Gynecology [address] [place] [address] Ifrah Patino from Last 3 Months Immunizations Immunization Administration Dates Next Due Hep A, Adult 03/27/2015 Influenza, Quadrivalent, Danette l Culture-based MDCK, Preservative Free, Antibiotic Free, Intramuscular 12/04/2020 Influenza, Quadrivalent, Spl it, Preservative Free, Intramuscular 01/11/2020,12/18/2018,12/22/2017,01/20 Influenza, Trivalent, Preser vative Free, Intramuscular 12/16/2023,02/03/2014,11/30/2010 Influenza, Unspecified 11/13/2020 Tdap 04/10/2021,03/27/2021,03/16/2021 Surgical History Surgery Date Site/Laterality Comments CHOLECYSTECTOMY 02/24/2014 - 02/23/2015 WISDOM TOOTH EXTRACTION 02/25/2008 - 02/23/2009 TONSILLECTOMY 02/25/2000 - 02/23/2001 SECTION, CLASSIC Medical History Medical History Date Comments Diabetes mellitus (HCC) Obesity 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 ASA at 12 weeks ? Baseline labs- 24 hour urine complete, CMP wnl ? Eye exam- scheduled in Feb 2021 ? EKG- reviewed by Dr. Lackey, possible LVH- recommen Supervision of high-risk pre gnancy, unspecified trimester 11/01/2020 ? Co-management vs. ? Full [facility]; ? Red Team ? Blue Team Referring Provider: Emilia Post [phone] ? or Medicare Insurance ? Dating Criteria: LMP 08/24/20 05/31/21 ? Labs: Rh [A+], Ab [negative], Rubella [immune], HIV [non-reactive], HepBSAg [non-reactive], RPR [non-reactive], GC/CT [negative/negative] ? Genetic Screening: LR NIPT ? CBC/Hgb 13.2/39.8/plt 345 ? Family History Medical History Relation Name Comments Diabetes Father Hypertension Father Diabetes Mother Hypertension Mother Relation Name Status Comments Father Maternal Grandfather Maternal Grandmother Mother Paternal Grandfather Paternal Grandmother Sister Alive Social History Tobacco Use Types Packs/Day Years [...] on file Legal Sex Female 7:50 AM ESCROW PROCESSOR Gender Identity Female 03/07/2021 4:29 PM ESCROW PROCESSOR Sexual Orientation Straight 11/08/2020 9: 49 AM CDT Obstetrics History Para Term AB IAB SAB Ectopic Multiple Livin g Live Births 3 1 1 1 1 1 1 Date Outcome GA Total Labor Labor/2nd/3rd Weight Sex Type Anes PTL Zane A1 A5 Name Clin 2019 SAB 6w0 d 2021 Term 38w 5d 0h 01m 0h 01m 3.17 kg (6 lb 15.8 oz) M CS-LT ranv Epidur al N Livin g 8 9 RITESH DASILVA Dedrick vázquez DO Complications:Failure to Pro mirian in First Stage, Intolerance Delivery Location:[facility] ([facility]) Current Summary Episode Dates Number of Fetuses Estimated Date of Delivery 08/18/2024 - Present (10/22/2024) 03/15/2025 (set by Savannah Latham MD on 08/31/2024 based on Ultrasound on 07/28/2024) Dating Summary Based On THU GA Diff Last Menstrual Period on 06/02/2024 03/09/2025 +6d Ultrasound on 07/28/2024 03/15/2025 Working GA:7w1d Comment:reported under recor ds received, no formal report to review, p12/43 Ultrasound on 08/30/2024 03/13/2025 +2d GA:12w1d Comment:CRL report under Sommer ging Vitals Pregravid Weight Height TWG (As of 10/22/2024) Pregrav id BMI 93 kg (205 lb) 0 kg (0 lb) Date GA Fund Present FHR Mvmt BP Weight Edema Alb Glu Ket Dil/ Eff/Sta 5 11w6d Inpatient data not displayed here. See encounter summary. 19w1d Inpatient data not displayed here. See encounter summary. Notes Progress Notes - Office Visi t - 10/20/2024 - GA:19w1d 10/20/2024 - 19w1d - Lorena Connor, JOSEFA Dear Dr. Dunne, It was a pleasure meeting again with our mutual patient in continued consultation. MFM Return Visit 10/20/2024 Solange Montanez is a 33 y.o. at 19w1d who is here for a return OB visit. Her is complicated by T2DM, anxiety, cHTN, obesity, history of one prior CS, and hypothyroidism.. Subjective: Feels well today. She denies cramping, loss of fluid, or vaginal bleeding. Declines NIPT due to concerns for insurance coverage. She has a trip to [place] in November. Objective: BP 116/72 Pulse 95 Wt 205 lb (93 kg) LMP 06/02/2024 SpO2 99% BMI 35.19 kg/m General: NAD Abdomen: Soft, gravid, NT, FHR + Ultrasound: normal anatomy- see finalized US report Assessment/Plan: Solange Montanez is a 33 y.o. at 19w1d with a complicated by the following: Problem List 03/15/24 Chronic hypertension affecting - Primary Overview History: Diagnosis: 2020 Pre- medications: lisinopril 5mg daily Previously counseled Current medication regimen: None Plan: [x] Low dose ASA 81 mg starting at 12 weeks - taking [] Baseline preeclampsia labs (CBC, CMP, UPC 0.1)- records requested 10/20/2024 [] Baseline EKG - scheduled for Friday See T2DM problem for recommendations on serial growth US, testing, and delivery timing Relevant Orders US Ob Follow Up US Ob Follow Up US Ob Follow Up US Ob Follow Up Generalized anxiety disorder Overview Reports history of anxiety. Mood stable. Not currently on medications. Will complete counseling if she desires to start medications. History of section complicating Overview Underwent IOL at 38w3d for cHTN and T2DM. Arrest of dilation at 6cm with intolerance of labor. Uncomplicated primary CS. See operative note in CareEverywhere 06/06/2021. Strongly desires repeat CS. Delivery planning per primary OB. Hypothyroid in , antepartum Overview History: History of Graves/hyperthyroidism?: No Pre- regimen: None Previously counseled Current regimen: None Plan: [x] Maintain TSH within normal reference range throughout [x] Repeat TSH at least once a trimester if well controlled [x] T1: 3.21 [] T2: [] T3: [] If uncontrolled or if making dose adjustments to medication, repeat every 4-6 weeks until controlled Obesity complicating in first trimester Overview Pre- BMI: 35 Previously counseled Plan: [x] Low dose ASA starting at 12 weeks See T2DM problem for Duc and testing Relevant Orders US Ob Follow Up US Ob Follow Up US Ob Follow Up US Ob Follow Up Pre-existing type 2 diabetes mellitus during , antepartum Overview History & Counseling Diagnosed age 16 (2007) History of DKA? None Last hemoglobin A1C: 6.1% on June 2024 Pre- regimen: Jardiance 10mg daily, metformin 1000mg BID, Mounjarno 7.5mg/0.5mL Pre- TDD of insulin: none Pre- weight: 206lbs as of 03/23/24 Home blood glucose measurements: Fasting 130-135; random ~120 S/p MFM counseling 08/30/2024 [facility] clinic accounts Current regimen: 10/20/2024- no changes Lantus 20u qHS Lispro 6 units TID with meals Plan - Physician adjusting medication dosage: MFM [x] Recommend weekly review of BG/insulin data to adjust medication dosing [x] Diabetes education [x] Glucagon prescribed - sent 08/30 [x] Referral to ophthalmology for comprehensive eye exam [] Baseline CMP, UPC, TSH- records requested [] HgbA1c qTrimester [x] 1st T: 6.1 [] 2nd T: [] 3rd T: [x] Low dose ASA starting at 12 weeks - already taking [] Baseline EKG, consider maternal ECHO (if long standing disease, other comorbidities) - EKG scheduled [x] 1st trimester anatomy US - 1T dating US normal, defer to specialized anatomy in 2T [x] Specialized anatomy ultrasound at 18-20 weeks [] echocardiogram at 20-22 weeks- scheduled [] Serial growth ultrasounds every 4 weeks- scheduled [] Twice weekly surveillance starting at 32 weeks [] insulin plan by 32 weeks [] Delivery at [id number] (36w0d - 38w6d if has vascular complications or diabetes is poorly controlled) Current Assessment & Plan BS reviewed with good control. Continue current regimen. Relevant Orders Echo Doppler US Ob Follow Up US Ob Follow Up US Ob Follow Up US Ob Follow Up Supervision of high-risk , first trimester Overview [x] Co-management [x] Blue Team Referring Provider: Dedrick Dunne [phone] [] or Medicare Insurance [x] Dating Criteria: US 07/28/24 with 03/15/24 [] Labs: Rh [ ], Ab [ ], Rubella [ ], HIV [ ], HepBSAg [ ], HepBSAb [ ], HepBCAb [ ], RPR [ ], Hep C [ ], Varicella [ ], GC/CT [negative/negative], trich [neg]- records requested 10/20/2024 [] Aneuploidy Screening: counseled and declines [] Carrier Screening: counseled and declines [] Hgb electrophoresis: [] CBC/Hgb: [x] Hgb A1c 07/22/24: 6.1 [] UCx: [x] Pap: 07/28/24: NILM; HPV negative [x] LD ASA (if indicated): [] EPDS [ ]; PNBHS referral (if indicated): 2nd Trimester [x] Anatomy ultrasound: wnl [] CBC at 24-28wks: [] Rhogam at 28 wks (if Rh neg): 3rd Trimester [] CBC/HIV/RPR/T&S: [] GBS: [] GC/CT (if indicated): [] testing: Counseling [] MOD: [] Place of delivery: [] Epidural: [] Accepts Blood Products: [] Stop ASA: [] MOC: [] Method of feeding: [] Vp Securities (specifically which provider): [] PP Depression Discussed: [] PP visits scheduled: Vaccines [] Flu Shot (Oct-Jan): [] COVID vaccine: [] Tdap (27-36wks): [] RSV vaccine (32-36wks): [] PP HPV vaccine counseling (<=26 yo): Hospital precautions reviewed. My total encounter time on 10/20/2024 was 20 minutes. 15 minutes was spent counseling the patient. 5 minutes was spent reviewing records and her US prior to the visit. This time does not include time spent in any separately reportable services. Thank you for allowing me to participate in the care of this aby patient. If you have any questions or concerns do not hesitate to contact our office. Sincerely, SATURNINO Schneider Progress Notes - Documentati on - 10/12/2024 - GA:18w0d 10/12/2024 - 18w0d - Viktoria Soriano MD Images from the original note were not included. Glycemic Control Meeting 10/12/2024 This patient was discussed at the glycemic control meeting on 10/12/2024. I have analyzed and interpreted > 72 hours of ambulatory continuous glucose monitoring of interstitial fluid via a subcutaneous sensor for Solange Montanez. Very good glycemic control; no recommended changes. The following adjustments have been proposed: Current regimen: 10/12/2024 - no changes Lantus 20u qHS Lispro 6 units TID with meals This note has been sent to [facility] RN clinical pool for coordination of patient care and to communicate proposed adjustments. The problem list has been updated. I have spent 5 total minutes on remote diabetes management. Viktoria Soriano MD [facility] Division of Maternal- Medicine and Ultrasound Department of Obstetrics and Gynecology [facility] Progress Notes - Documentati on - 10/05/2024 - GA:17w0d 10/05/2024 - 17w0d - Viktoria Soriano MD Images from the original note were not included. Glycemic Control Meeting 10/05/2024 This patient was discussed at the glycemic control meeting on 10/05/2024. I have analyzed and interpreted > 72 hours of ambulatory continuous glucose monitoring of interstitial fluid via a subcutaneous sensor for Solange Montanez. Very good overall glycemic control. Has borderline fasting values with >50% elevated. Will recommend a very slight increase in Lantus dosing. Given inconsistencies throughout the day on mealtime elevations, will defer changes to Lispro for now. The following adjustments have been proposed: Current regimen: 10/05/2024 Lantus 18u qHS > Lantus 20u qHS Lispro 6 units TID with meals This note has been sent to [facility] RN clinical pool for coordination of patient care and to communicate proposed adjustments. The problem list has been updated. I have spent 5 total minutes on remote diabetes management. Viktoria Soriano MD [facility] Division of Maternal- Medicine and Ultrasound Department of Obstetrics and Gynecology [facility] Progress Notes - Documentati on - 09/21/2024 - GA:15w0d 09/21/2024 - 15w0d - Viktoria Soriano MD Images from the original note were not included. Glycemic Control Meeting 09/21/2024 This patient was discussed at the glycemic control meeting on 09/21/2024. I have analyzed and interpreted > 72 hours of ambulatory continuous glucose monitoring of interstitial fluid via a subcutaneous sensor for Solange Montanez. Overall very good glycemic control. Recommend no changes this week. The following adjustments have been proposed: Current regimen: 09/21/2024 - no changes Lantus 18u qHS Lispro 6 units TID with meals This note has been sent to [facility] clinical pool for coordination of patient care and to communicate proposed adjustments. The problem list has been updated. I have spent 5 total minutes on remote diabetes management. Viktoria Soriano MD [facility] Division of Maternal- Medicine and Ultrasound Department of Obstetrics and Gynecology [facility] in [employer] Progress Notes - Telemedicin e - 09/13/2024 - GA:13w6d 09/13/2024 - 13w6d - Lorena Connor NP This was a telemedicine visit with Solange Alegria Malalfie alone which took place via Real-time video connection (InTouch, Zoom or similar). During the visit, I was located in the office and the patient was located in in her aunts home in the state of [place]. The patient visit started at 1:37 and ended at 1:47. My total encounter time on 09/13/2024 was 20 minutes which was spent in the activities documented in the note. This includes time spent prior to the visit and after the visit in direct care of the patient. This time does not include time spent in any separately reportable services. The patient: has been informed that the visit may not be secure and acknowledged the information. After being given an opportunity to ask questions about and discuss this type of visit, they verbally consented to proceeding with the telephone/video visit and understand that this service replaces an office visit. A guest was not included in this video visit. [facility] Return Visit 09/13/2024 Solange Montanez is a 33 y.o. at 13w6d who is here for a return OB visit. Her is complicated by T2DM, anxiety, cHTN, obesity, history of one prior CS, and hypothyroidism. Subjective: Feels well today. She denies cramping, loss of fluid, or vaginal bleeding. She reports difficulty sleeping. She has not yet seen diabetes education but would like to see them again if she can do it via telemedicine. She is hoping to start meal time insulin today. She is not withholding food but does feel nervous about eating when hungry to avoid highs. Objective: LMP 06/02/2024 General: NAD Ultrasound: n/a Assessment/Plan: Solange Montanez is a 33 y.o. at 13w6d with a complicated by the following: Problem List 03/15/24 Chronic hypertension affecting - Primary Overview History: Diagnosis: 2020 Pre- medications: lisinopril 5mg daily Previously counseled Current medication regimen: None Plan: [x] Low dose ASA 81 mg starting at 12 weeks - taking [] Baseline preeclampsia labs (CBC, CMP, UPC 0.1) per primary OB [] Baseline EKG per primary OB [] Baseline ECHO (if abnormal EKG, long standing disease or long-term medications) See T2DM problem for recommendations on serial growth US, testing, and delivery timing Generalized anxiety disorder Overview Reports history of anxiety. Mood stable. Not currently on medications. Will complete counseling if she desires to start medications. History of section complicating Overview Underwent IOL at 38w3d for cHTN and T2DM. Arrest of dilation at 6cm with intolerance of labor. Uncomplicated primary CS. See operative note in CareEverywhere 06/06/2021. Strongly desires repeat CS. Delivery planning per primary OB. Hypothyroid in , antepartum Overview History: History of Graves/hyperthyroidism?: No Pre- regimen: None Previously counseled Current regimen: None Plan: [] Maintain TSH within normal reference range throughout [] Repeat TSH at least once a trimester if well controlled [] T1: 3.21 [] T2: [] T3: [] If uncontrolled or if making dose adjustments to medication, repeat every 4-6 weeks until controlled Obesity complicating in first trimester Overview Pre- BMI: 35 Previously counseled Plan: [x] Low dose ASA starting at 12 weeks See T2DM problem for Duc and testing Pre-existing type 2 diabetes mellitus during , antepartum Overview History & Counseling Diagnosed age 16 (2007) History of DKA? None Last hemoglobin A1C: 6.1% on June 2024 Pre- regimen: Jardiance 10mg daily, metformin 1000mg BID, Mounjarno 7.5mg/0.5mL Pre- TDD of insulin: none Pre- weight: 206lbs as of 03/23/24 Home blood glucose measurements: Fasting 130-135; random ~120 S/p MFM counseling 08/30/2024 [facility] clinic accounts Current regimen:09/13/2024 Lantus 18u qHS Start lispro 6 units TID with meals Plan - Physician adjusting medication dosage: MFM [x] Recommend weekly review of BG/insulin data to adjust medication dosing [] Diabetes education- referral placed 09/13/2024 [x] Glucagon prescribed - sent 08/30 [] Referral to ophthalmology for comprehensive eye exam per primary OB [] Baseline CMP, UPC, TSH per primary OB [] HgbA1c qTrimester [x] 1st T: 6.1 [] 2nd T: [] 3rd T: [x] Low dose ASA starting at 12 weeks - already taking [] Baseline EKG, consider maternal ECHO (if long standing disease, other comorbidities) - per primary OB [] 1st trimester anatomy US - 1T dating US normal, defer to specialized anatomy in 2T [] Specialized anatomy ultrasound at 18-20 weeks - ordered [] echocardiogram at 20-22 weeks [] Serial growth ultrasounds every 4 weeks starting at 24 weeks [] Twice weekly surveillance starting at 32 weeks [] insulin plan by 32 weeks [] Delivery at [id number] (36w0d - 38w6d if has vascular complications or diabetes is poorly controlled) Current Assessment & Plan Reviewed carb recommendations with MANDEEP MD and then notified pt. Recommend breakfast 30-45g of carbs, lunch 40-60g carbs and dinner 45-60g carbs. Recommend 15g carbs with snacks 2-3 hours after meals. Will refer to diabetes education for appt with this . Plan made to start lispro 6 units with meals. Discussed taking it 10- 15 minutes before meals but only when she knows her food is actually going to be available. Discussed hypoglycemic symptoms and when to verify BS. Pt knows to treat BS <65 and notify our team for possible adjustments. She has already been rx glucagon and has that rx. Rx placed for lispro 6 units with meals. Supervision of high-risk , first trimester Overview [x] Co-management [x] Blue Team Referring Provider: Dedrick Dunne [phone] [] or Medicare Insurance [x] Dating Criteria: US 07/28/24 with 03/15/24 [] Labs: Rh [ ], Ab [ ], Rubella [ ], HIV [ ], HepBSAg [ ], HepBSAb [ ], HepBCAb [ ], RPR [ ], Hep C [ ], Varicella [ ], GC/CT [negative/negative], trich [neg] per primary OB [] Aneuploidy Screening: per primary OB [] Carrier Screening: per primary OB [] Hgb electrophoresis: [] CBC/Hgb: [x] Hgb A1c 07/22/24: 6.1 [] UCx: [x] Pap: 07/28/24: NILM; HPV negative [] LD ASA (if indicated): [] EPDS [ ]; PNBHS referral (if indicated): 2nd Trimester [] Anatomy ultrasound: [] CBC/1hr gtt at 24-28wks: [] Rhogam at 28 wks (if Rh neg): 3rd Trimester [] CBC/HIV/RPR/T&S: [] GBS: [] GC/CT (if indicated): [] testing: Counseling [] MOD: [] Place of delivery: [] Epidural: [] Accepts Blood Products: [] Stop ASA: [] MOC: [] Method of feeding: [] Vp Securities (specifically which provider): [] PP Depression Discussed: [] PP visits scheduled: Vaccines [] Flu Shot (Oct-Jan): [] COVID vaccine: [] Tdap (27-36wks): [] RSV vaccine (32-36wks): [] PP HPV vaccine counseling (<=26 yo): #sleep - discussed unisom 12.5mg prn Hospital precautions reviewed. Thank you for allowing me to participate in the care of this aby patient. If you have any questions or concerns do not hesitate to contact our office. Sincerely, SATURNINO Schneider Progress Notes - Documentati on - 09/07/2024 - GA:13w0d 09/07/2024 - 13w0d - Viktoria Soriano MD Images from the original note were not included. Glycemic Control Meeting 09/07/2024 This patient was discussed at the glycemic control meeting on 09/07/2024. I have analyzed and interpreted > 72 hours of ambulatory continuous glucose monitoring of interstitial fluid via a subcutaneous sensor for Solange Montanez. Continues to have mildly elevated fasting values but overall with very good glycemic control. Recommend mild adjustment to Lantus dosing. The following adjustments have been proposed: Current regimen: 09/07/2024 Lantus 16 units qHS > Lantus 18u qHS This note has been sent to [facility] RN clinical pool for coordination of patient care and to communicate proposed adjustments. The problem list has been updated. I have spent 5 total minutes on remote diabetes management. Viktoria Soriano MD [facility] Division of Maternal- Medicine and Ultrasound Department of Obstetrics and Gynecology [facility] Progress Notes - Office Visi t - 08/30/2024 - GA:11w6d 08/30/2024 - w6d - Cynthia Rubio MD Maternal Medicine Consult Note Reason for Consult: Requesting Provider: Dedrick Dunne MD Dear Dr. Dedrick Dnune, We had the pleasure of seeing your patient Solange Montanez in our office today. As you know, she is a 33 y.o. at 11w5d by 1st trimester US here today for a consult regarding 2DM, anxiety, cHTN, obesity, history of one prior CS, and hypothyroidism. Today she is doing well. She has no OB complaints. Denies cramping, pelvic pain, vaginal bleeding, abnormal discharge, leakage of fluid. No yet feeling movement. Taking her BG everydays: Fastings 130-135, random BGs 120s, posprandial 130-200 depending on what she eats. BPs normotensive. Mood stable. Past Medical History: Diagnosis Date Anxiety Depression Diabetes mellitus (HCC) Diabetes mellitus during , antepartum 11/01/2020 TYPE II DIABETES: Previously counseled Plan for weekly logs to [facility] for review S/p specialized US Echo on 02/12/2021 nml CURRENT REGIMEN: 05/29/2021 Lantus: 46 qAM / 48 units qHS Lispro: Metformin 1000 BID ? ASA at 12 weeks ? Baseline labs- 24 hour urine complete, CMP wnl ? Eye exam- scheduled in Feb 2021 ? EKG- reviewed by Dr. Lackey, possible LVH- recommen Obesity Supervision of high-risk , unspecified trimester 11/01/2020 ? Co-management vs. ? Full [facility] Care; ? Red Team ? Blue Team Referring Provider: Emilia Post [phone] ? or Medicare Insurance ? Dating Criteria: LMP 08/24/20 05/31/21 ? Labs: Rh [A+], Ab [negative], Rubella [immune], HIV [non-reactive], HepBSAg [non-reactive], RPR [non-reactive], GC/CT [negative/negative] ? Genetic Screening: LR NIPT ? CBC/Hgb 13.2/39.8/plt 345 ? 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 Past Surgical History: Procedure Laterality Date SECTION, CLASSIC CHOLECYSTECTOMY 2015 TONSILLECTOMY 2001 WISDOM TOOTH EXTRACTION 2008 Past Gynecologic History: Prior STIs: None History of abnormal pap: 2014 Last pap smear: 07/28/24: NILM; HPV negative Denies history of uterine anomalies or fibroids OB History Para Term AB Living 3 1 1 1 1 SAB IAB Ectopic Multiple Live Births 1 1 # Outcome Date GA Lbr Clarence/2nd Weight Sex Type Anes PTL Lv 3 Current 2 Term 06/06/21 38w5d 3.17 kg (6 lb 15.8 oz) M CS-LTranv EPI N ZANE Complications: Failure to Progress in First Stage, Intolerance 1 SAB 01/06/20 6w0d Current medications: Metformin 2,000mg daily, Aspirin 81mg, vitamin Family History: Family History Problem Relation Age of Onset Diabetes Father Hypertension Father Diabetes Mother Hypertension Mother Neural tube defects: No Down syndrome or other chromosomal anomalies: No Hemophilia, sickle cell, bleeding/clotting disorder: No Muscular dystrophy: No Cystic fibrosis: No Intellectual disability or Fragile X: No Beau[place] disease: No Other defects or genetic disorders: No Allergies Allergen Reactions Cat Dander Hives Social History Tobacco Use Smoking status: Never Smokeless tobacco: Never Substance and Sexual Activity Drug use: Never Sexual activity: Yes Partners: Male control/protection: None Alcohol Use: Not At Risk (08/30/2024) AUDIT-C Frequency of Alcohol Consumption: Never Average Number of Drinks: Patient does not drink Frequency of Binge Drinking: Never No currently working Lives with spouse and child Smoke cigarettes, cigars, E-cigs: No Beer, wine, or liquor: No Street drugs/marijuana: No Dating: THU of Estimated Date of Delivery: LMP 06/02/2024 >>03/15/2025 1T US completed 07/28/2024 GA on US on 08/24 >> 03/15/2025 Review of Systems Review of systems per HPI and otherwise all systems are negative Physical Exam Vitals BP 124/75 Pulse 80 Wt 210 lb (95.3 kg) LMP 06/02/2024 SpO2 99% BMI 36.05 kg/m General: well appearing, no apparent distress The rest of the exam was deferred due to the consultative nature of this visit. Heart: regular rate and rhythm Lungs: Breathing comfortably on room air Abdomen: soft, gravid Extremities: warm and well perfused Ultrasound 08/31/2024: IMPRESSION: The CRL is c/w gestational age, and a normal FHR is documented. No anomalies were identified within the limits of a first trimester scan. Normal HR Please see the separate report for full details Assessment: Ms. Solange Montanez is a aby 33 y.o. at 11w5d here today for a consult regarding: Recommendations: Problem Hypothyroid in , Antepartum History: History of Graves/hyperthyroidism?: No Pre- regimen: None Counseling 08/30/2024 Well controlled hypothyroidism is is generally not associated with adverse outcomes. Poorly controlled, overt hypothyroidism has been associated with a number of poor outcomes, including gestational hypertension and preeclampsia, abruption, delivery, miscarriage, low weight, cognitive impairment, and hemorrhage. individuals with hypothyroidism should maintain their TSH at < 2.5 mU/L throughout to optimize outcomes. Typically, T4 requirements will increase in , sometimes as much as 50% by the 5th gestational week. Dose adjustments should be made based on TSH level, rather than T4 or T3 levels. We recommend screening TSH every trimester, as up to 60% of patients with pre-existing hypothyroidism will require increasing their replacement dose through . Patients with a history of Grave s disease may have persistent anti-thyroid antibodies that may cross the placenta and rarely can cause Grave s disease which can manifest with a tachycardia, goiter, or FGR prenatally or Grave s after . AAP recommends that any patient with a history of Grave s disease have antibody screening in to guide management. Current regimen: None Plan: [] Maintain TSH within normal reference range throughout [] Repeat TSH at least once a trimester if well controlled [] T1: 3.21 [] T2: [] T3: [] If uncontrolled or if making dose adjustments to medication, repeat every 4-6 weeks until controlled History of Section Complicating Underwent IOL at 38w3d for cHTN and T2DM. Arrest of dilation at 6cm with intolerance of labor. Uncomplicated primary CS. See operative note in CareEverywhere 06/06/2021. Strongly desires repeat CS. Delivery planning per primary OB. Supervision of High-Risk , First Trimester SEROLOGIES NEEDED [] OB consult only, [x] Co-management vs. [] Full [facility] Care; [] Red Team [x] Blue Team Referring Provider: Dedrick Dunne [phone] [] or Medicare Insurance [x] Dating Criteria: US 07/28/24 with 03/15/24 [] Labs: Rh [ ], Ab [ ], Rubella [ ], HIV [ ], HepBSAg [ ], HepBSAb [ ], HepBCAb [ ], RPR [ ], Hep C [ ], Varicella [ ], GC/CT [negative/negative], trich [neg] per primary OB [] Aneuploidy Screening: per primary OB [] Carrier Screening: per primary OB [] Hgb electrophoresis: [] CBC/Hgb: [x] Hgb A1c 07/22/24: 6.1 [] UCx: [x] Pap: 07/28/24: NILM; HPV negative [] LD ASA (if indicated): [] EPDS [ ]; PNBHS referral (if indicated): 2nd Trimester [] Anatomy ultrasound: [] CBC/1hr gtt at 24-28wks: [] Rhogam at 28 wks (if Rh neg): 3rd Trimester [] CBC/HIV/RPR/T&S: [] GBS: [] GC/CT (if indicated): [] testing: Counseling [] MOD: [] Place of delivery: [] Epidural: [] Accepts Blood Products: [] Stop ASA: [] MOC: [] Method of feeding: [] Vp Securities (specifically which provider): [] PP Depression Discussed: [] PP visits scheduled: Vaccines [] Flu Shot (Oct-Jan): [] COVID vaccine: [] Tdap (27-36wks): [] RSV vaccine (32-36wks): [] PP HPV vaccine counseling (<=26 yo): Obesity Complicating in First Trimester Pre- BMI: 35 Counseling 08/30/2024: Obesity in (BMI >30) is associated with increased risks. Maternal risks include higher rates of preeclampsia, gestational diabetes, and section due to labor abnormalities. risks include anomalies, growth abnormalities ( growth restriction and macrosomia), and stillbirth. Maternal BMI can impact the ability to monitor the heart rate comprehensively during labor and delivery. Recommended weight gain is a total of 11-20 lbs, with 1-4 lbs in the 1st trimester and 0.5 lb/week in the 2nd and 3rd trimesters. Plan: [x] Low dose ASA starting at 12 weeks See T2DM problem for Duc and testing Generalized Anxiety Disorder Reports history of anxiety. Mood stable. Not currently on medications. Will complete counseling if she desires to start medications. Chronic Hypertension Affecting History: Diagnosis: 2020 Pre- medications: lisinopril 5mg daily Counseling 08/30/2024: We counseled the patient that chronic hypertension is associated with an increased risk of adverse outcomes, including growth restriction and stillbirth. Additionally, we discussed that hypertension is associated with development of superimposed preeclampsia with severe features and placental abruption, which can result in iatrogenic delivery in up to 30% of individuals with mild chronic hypertension. Baseline serum preeclampsia labs (CBC, creatinine, BUN, AST, ALT) are recommended in all patients with a history of hypertension. A workup for end organ damage is also recommended, including an EKG and urine protein/creatinine ratio. A fundoscopic exam by ophthalmology is recommended as well, if one has not been performed within the last 12 months. Low dose aspirin is recommended to start at 12 weeks for preeclampsia prophylaxis. Preeclampsia symptoms (headache, scotomata, epigastric pain) were reviewed. We reviewed the course of blood pressures in , specifically that patients usually experience a decrease in systemic pressure in the first trimester followed by a gradual rise starting at around 28 weeks. Recent data from the CHAP study recommends a treatment BP goal of <140/90 antepartum to improve maternal and outcomes, especially in reducing the risk of preeclampsia. Mildly elevated blood pressures in patients with chronic hypertension have not been associated with poor outcomes in the fetus or the mother. However, a preeclampsia workup would be recommended if blood pressures are elevated and significantly above usual baseline or in the severe range for . Current medication regimen: None Plan: [x] Low dose ASA 81 mg starting at 12 weeks - taking [] Baseline preeclampsia labs (CBC, CMP, UPC 0.1) per primary OB [] Baseline EKG per primary OB [] Baseline ECHO (if abnormal EKG, long standing disease or long-term medications) See T2DM problem for recommendations on serial growth US, testing, and delivery timing Pre-Existing Type 2 Diabetes Mellitus During , Antepartum History: Diagnosed age 16 (2007) History of DKA? None Last hemoglobin A1C: 6.1% on June 2024 Pre- regimen: Jardiance 10mg daily, metformin 1000mg BID, Mounjarno 7.5mg/0.5mL Pre- TDD of insulin: none Pre- weight: 206lbs as of 03/23/24 Home blood glucose measurements: Fasting 130-135; random ~120 Counseling 08/30/2024: We reviewed that type 2 diabetes is the most common form of pregestational diabetes and is characterized by peripheral insulin resistance. is generally a state of increased insulin resistance, the one exception being late first trimester when relatively higher levels of estrogen may enhance insulin sensitivity and increase the risk of maternal hypoglycemia, especially when associated with nausea and vomiting. As such, insulin requirements will likely change during and frequent monitoring throughout is indicated. This in combination with diabetes education, exercise, and nutritional modifications will be necessary to achieve optimal glycemic control. We reviewed that goal blood glucose values are generally fasting and premeal glucose of 95 mg/dL or less and 1-hour postprandial glucose of 140 mg/dL or less. We recommend checking blood sugars fasting, before each meal, and 1 hour after eating. Due to the increased risk of diabetic ketoacidosis (DKA) in , we also recommend checking urine ketones when the blood glucose level exceeds 200 mg/dL. For patients on a CGM, targets include a Time in Range (TIR 63-140mg/dL of >70%), Time Above Range (TAR >140 mg/dL <25%), Time Below Range (TBR <63mg/dL <4%) and Time Below Range (TBR <54 mg/dL 1%). For any individual on insulin, we recommend having glucagon available in case of hypoglycemic episodes. We also reviewed the increased maternal and risks associated with type 2 diabetes in . We discussed that major congenital anomalies (cardiac, neurologic, skeletal, etc.) are the leading causes of mortality in pregnancies complicated by diabetes, and that the risk of congenital anomalies is directly related to hemoglobin A1C values. A starting HgbA1c level of 6.1% is associated with a 5% anomaly rate and an 8% rate of miscarriage. Other risks include large for gestational age or small for gestational age infants, delivery, and stillbirth. Maternal and obstetric risks discussed include exacerbation of diabetes-related complications (particularly retinopathy and nephropathy), hypertensive disorders of , shoulder dystocia, and need for section. We also discussed that outcomes are best with optimal glycemic control. Lastly, we discussed that an insulin drip will likely be required in labor. We discussed that s second trimester specialized anatomic survey, serial growth ultrasounds, and surveillance twice weekly starting at 32 weeks gestation are recommended. We will defer first trimester anatomy surgery given normal US today at 12w5d with 1T HgbA1c of 6.1. We discussed that a echocardiogram is recommended in the second trimester given the increased risk of anomalies in T2DM. We reviewed that an estimated weight >4500 g at the time of delivery would be an indication for a delivery. Current regimen: Lantus 16 units nightly (started 08/30) Dexcom placed 08/30, script sent for refills Plan - Physician adjusting medication dosage: MFM [x] Recommend weekly review of BG/insulin data to adjust medication dosing [] Diabetes education per primary OB [x] Glucagon prescribed - sent 08/30 [] Referral to ophthalmology for comprehensive eye exam per primary OB [] Baseline CMP, UPC, TSH per primary OB [] HgbA1c qTrimester [x] 1st T: 6.1 [] 2nd T: [] 3rd T: [x] Low dose ASA starting at 12 weeks - already taking [] Baseline EKG, consider maternal ECHO (if long standing disease, other comorbidities) - per primary OB [] 1st trimester anatomy US - 1T dating US normal, defer to specialized anatomy in 2T [] Specialized anatomy ultrasound at 18-20 weeks - ordered [] echocardiogram at 20-22 weeks [] Serial growth ultrasounds every 4 weeks starting at 24 weeks [] Twice weekly surveillance starting at 32 weeks [] insulin plan by 32 weeks [] Delivery at [id number] (36w0d - 38w6d if has vascular complications or diabetes is poorly controlled) Summary: - We recommend collecting routine first trimester labs and CMP, UPC - Started on Dexcom - Added to weekly diabetes meeting review - Requested images for 1T scan We have scheduled her to return in 2 weeks with a telehealth visit. Thank you for the opportunity to be involved in the care of your patient. Should you have any further questions or concerns, please do not hesitate to call us. She was seen and examined with Dr. Latham who is in agreement with the documented assessment and plan. Cynthia Kay MD MFM Fellow Cosigned by Mckenzie Latham MD at 09/01/2024 10:14 AM CDT Associated attestation - Mckenzie Latham MD - 09/01/2024 10:14 AM CDT I have seen and examined the patient. I agree with the findings and plan of care as documented in the resident/fellow's note. My total encounter time on 08/30/2024 was 30 minutes which was spent in the activities documented in the note. This includes time spent prior to the visit and after the visit in direct care of the patient. This time does not include time spent in any separately reportable services. I managed 2+ chronic conditions and reviewed care notes/labs from primary OB. Starting lantus insulin. Dexcom placed in clinic - Rx sent for refills. Counseled regarding medical comorbidities in . Follow up x2 weeks [facility] telehealth for glycemic review. Mckenzie Latham MD [facility] Division of Maternal- Medicine Progress Notes - Abstract - 08/18/2024 - GA:10w1d 08/18/2024 - w - Maliha Jackman RMA Current OB records are under media tab. DM records from PCP are under media tab. 2021 op note is copied below. Further records are under Care Everywhere dated 06/04/21. MFM records are in Epic. 08/18/2024 - w1d - Maliha Jackman RMA Op Note - Dedrick Dunne DO - 06/06/2021 4:28 PM CDT SECTION OPERATIVE NOTE Solange Blake Tarik , 1990 , [id number] ,[id number] Date of procedure: 06/06/2021 Preoperative Diagnosis: 1. at 38w5d 2. Non-reassuring Status 3. Chronic HTN 4. T2DM 5. Hypothyroid 6. Morbid Obesity Postoperative Diagnosis: 1. at 38w5d 2. Same Procedure: Low Transverse Section Surgeon: DEDRICK DUNNE DO Anesthesia: CSE Complications: None apparent Fluids: 700 mL EBL: 1200 mL Urine Output: 250 mL Drains: Bah Findings: Grossly normal uterus, bilateral fallopian tubes and ovaries; male infant cephalic presentation; meconium stained fluid; extension of right corner of hysterotomy inferiorly to lower uterine segment Specimens: Placenta to Pathology Disposition: Patient and stable to recovery room in stable condition. Indication: Solange Montanez is a 30-year-old at 38w5d presenting for IOL. Progressed to 5cm with subsequent arrest of dilation. C/S called for non-reassuring status due to prolonged deceleration and repetitive late decelerations. Procedure: The risks, benefits, indications, and alternatives of the procedure were reviewed with Solange Montanez and informed consent was obtained. The patient was taken to the operating room where CSE anesthesia was found to be adequate. A bah catheter was placed and prophylactic antibiotics were given. The surgical site was marked with a surgical marker and a timeout was performed. The patient was prepped and draped in the normal, sterile fashion in the supine position with a left lateral tilt. The skin was tested and found to be anesthetic. A Pfannenstiel incision was made approximately 2 cm above the symphysis pubis which was difficult to palpate due to maternal body habitus. The incision was carried down to the fascia with a knife until the rectus abdominis was visible lateral to the midline. The fascial incision was then extended out laterally with sharp dissection. The superior aspect of the fascia was elevated with Tc clamps and the underlying rectus muscle was dissected off with blunt and sharp dissection. In a similar fashion, the inferior aspect of the fascia was elevated with Tc clamps and the underlying rectus muscle was dissected off down to the level of the pyramidalis muscle. The linea alba was then in the midline and the peritoneum visualized. After ensuring there was no bowel adherent to the peritoneum, it was entered bluntly and the incision was extended with lateral and cephalad traction. The bladder blade was then placed and the vesicouterine peritoneum was identified. The bladder flap was developed with blunt and sharp dissection. The bladder blade was then repositioned to keep the bladder out of the operative field. A hysterotomy incision was made with a scalpel and the incision extended laterally and upward with manual traction. Amniotomy was performed and meconium stained fluid noted. The infant's head was elevated out of the pelvis and brought to the uterine incision with gentle traction and fundal pressure. The head was delivered, followed by the shoulders and body atraumatically. The mouth and nose were suctioned as the cord was clamped and cut. The was handed off to the awaiting nursing staff. The placenta was then removed and appeared intact. Pitocin was used to facilitate uterine contractions. The uterus was then exteriorized and the inside wiped clean with lap sponges to assure complete removal of membranes and tissue. The hysterotomy was reapproximated with 0-monocryl stitches in a running interlocking fashion. An extension down the right side toward the cervix was reapproximated with 0 Monocryl in running fashion. A second layer of imbricating 0-monocryl was placed to obtain good hemostasis. The tubes, ovaries, and fimbriae were identified and appeared normal. The posterior cul-de-sac was inspected and cleaned of blood clots and fluid with lap sponges. The uterus was then placed back into the abdominal cavity gently. The lateral gutters were cleared of blood clots and fluid with clean lap sponges. The uterine incision was reinspected and found to be hemostatic. The peritoneum was then closed using 2-0 Chomic in a running stitch. The fascia was closed with a running looped 0-PDS. Good hemostasis was achieved in the subcutaneous tissue with the bovie as needed. The subcutaneous tissue was reapproximated in 3 layers with 2-0 Plain Gut and the skin was closed with 4-0 monocryl. A Prevena dressing system was applied. Solange Montanez tolerated the procedure well and was taken to the recovery room in stable condition. All sponge, needle and instrument counts were correct x 3. DEDRICK DUNNE DO, 06/07/2021,4:28 PM ? Last Filed Vital Signs Vital Sign Reading Time Taken Comments Blood Pressure 116/72 10/20/2024 8:46 AM CDT Pulse 95 10/20/2024 8:46 AM CDT Temperature - - Respiratory Rate - - Oxygen Saturation 99% 10/20/2024 8:46 AM CDT Inhaled Oxygen Concentration - - Weight 93 kg (205 lb) 10/20/2024 8:46 AM CDT Height 162.6 cm (5' 4) 10/06/2024 10:36 AM CDT Body Mass Index 35.19 10/06/2024 10:36 AM CDT Plan of Treatment Health Maintenance Due Date Last Done Comments Albumin Creatinine Ratio, Urine 1990 Depression Screening 1990 Dilated Eye Exam 1990 Foot Exam 1990 Varicella Vaccines (1 of 2 - 13+ 2-dose series) 10/22/2003 Hepatitis B Screening 2008 Regular Well Visit/Exam 18-64 2008 Pneumococcal vaccine <65 (1 of 2 - PCV) 2009 Lipid Panel 03/07/2010 03/07/2009 HPV Vaccines (1 - 3-dose SCD M series) 2017 Cervical Cancer Screening 09/01/2019 08/31/2018 eGFR 12/04/2021 12/04/2020 Influenza Vaccine (#1) 2024 4, 12/04/2020, 11/13/2020, Additional history exists Hemoglobin A1C 01/22/2025 07/22/2024, 10/27/2020 DTaP/Tdap/Td Vaccine (4 - Td or Tdap) 04/10/2031 04/10/2021, 03/27/2021, 03/16/2021 Hepatitis C Screening Completed 10/27/2020 Procedures Procedure Name Priority Date/Time Associated Diagnosis Comments US OB DETAIL ANATOMY SINGLE OR FIRST GESTATION Schedule Routine, Read Routine (OP Routine) 10/20/2024 7:20 AM CDT Pre-existing type 2 diabetes mellitus during , antepartum US OB LIMITED Schedule Routine, Read Routine (OP Routine) 08/30/2024 8:30 AM CDT Supervision of high-risk , unspecified trimester CYTOLOGY Routine 07/28/2024 CHLAMYDIA TRACHOMATIS CULTURE Routine 07/28/2024 N. GONORRHOEAE CULTURE Routine 07/28/2024 TSH Routine 07/22/2024 T4, FREE Routine 07/22/2024 HEMOGLOBIN A1C Routine 07/22/2024 EGFR Routine 12/04/2020 11:20 AM CDT Poorly controlled type 2 diabetes mellitus (HCC) HEPATITIS C ANTIBODY Routine 10/27/2020 from Last 3 Months or Most Recently Relevant to Health Maintenance Results * US OB detail anatomy single [...] IMG OB US PROCEDUR ES Final Result * US Ob Limited (08/30/2024 8:30 AM CDT) Fetus# Fetus1 VIEWPOINT Placenta Details posterior VIEWPOINT Anatomical Region Laterality Modality Abdomen N/A Ultrasound 08/30/2024 8:31 AM CDT Impressions 08/30/2024 9:06 AM CDT The CRL is c/w gestational age, and a normal FHR is documented. No anomalies were identified within the limits of a first trimester scan. IUP at 12 weeks + 5 days with active FHM Narrative Procedure Note Stacia Spangler MD - 08/30/2024 IMPRESSION: The CRL is c/w gestational age, and a normal FHR is documented. Noanomalies were identified within the limits of a first trimester scan. IUP at 12 weeks + 5 days with active FHM us Michael Carrasquillo MD IMG OB US PROCEDURES Final Result * Cytology (07/28/2024) SCRIBED Pap test NILM; HPV negative Fluid us Notinfile Unknown LAB CYTOLOGY ORDERABLES Final Result * Chlamydia trachomatis culture (07/28/2024) SCRIBED Chlamydia culture negative us Notinfile Unknown LAB MICROBIOLOGY - GENERAL ORD ERABLES Final Result * N. gonorrhoeae culture (07/28/2024) SCRIBED Gonorrhea culture negative us Notinfile Unknown LAB MICROBIOLOGY - GENERAL ORD ERABLES Final Result * TSH (07/22/2024) Scribed TSH 3.21 mcU/mL Blood us Notinfile Unknown LAB BLOOD ORDERABLES Final Res ult * T4, free (07/22/2024) SCRIBED T4, Free 1.2 mcg/dL Blood us Notinfile Unknown LAB BLOOD ORDERABLES Final Res ult * (ABNORMAL) Hemoglobin A1c (07/22/2024) SCRIBED Hemoglobin A1c 6.1(A) 4.0 - 5.6 % Blood us Notinfile Unknown LAB BLOOD ORDERABLES Final Res ult * eGFR (12/04/2020 11:20 AM CDT) eGFR >90 90 - 130 mL/min/1.7 3 m2 PHIL MORE Comment: Interpretive Data Reference Interval Normal >/= 90 mL/min/1.73m2 Mildly decreased* 60 - 89 mL/min/1.73m2 Mildly to moderately decreased 45 - 59 mL/min/1.73m2 Moderately to severely decreased 30 - 44 mL/min/1.73m2 Severely decreased 15 - 29 mL/min/1.73m2 Kidney Failure < 15 mL/min/1.73m2 *Relative to young adult level Estimated glomerular filtration rate is determined by the CKD-EPI equation recommended by the National Kidney Foundation (KDIGO 2012 Clinical Practice Guideline for the Evaluation and Management of Chronic Kidney Disease. Kidney Intnl Suppl Feb 2012;3:1). The CKD-EPI equation should not be used for patients with unstable renal function and has not been validated in children and those over 70. Current interpretive data was last reviewed 2020 Blood 12/04/2020 11:2 0 AM CDT 12/04/2020 12:02 PM CDT us Lorena Khoury NP LAB BLOOD ORDERABLE S Final Result PHIL MORE [facility] [place] [address] * Hepatitis C antibody (10/27/2020) SCRIBED HCV ab non-reacti ve Blood specimen (specimen) Charlene Sanches MD LAB MICROBIOLOGY - GENER AL ORDERABLES Final Result from Last 3 Months or Most Recently Relevant to Health Maintenance Insurance [facility] H[facility]PP[facility] Address: [facility] [id number] [place] [address] [facility]O Address: [facility] [id number] [place] [id number] Care Teams Director Outpatient Services Relationship Specialty Start Date End Date Salomón Jordan MD PCP - General Internal Medicine 10/27/20 Charlene Sanches MD [id number] [place] [address] Referring Physician Obstetrics and Gynecology 10/27/20
== END 2024-10-22 08:31 | disposition home or self-care (01) ==
LOC: ANHCARD 08:33
PROVIDERS: PCP Internal Medicine; Visit Provider Student in an Organized Health Care Education/Training Program
DX: O24.112 Pre-existing type 2 diabetes mellitus, in pregnancy, second trimester (principal); Q23.81 Bicuspid aortic valve; Z3A.00 Weeks of gestation of pregnancy not specified
CPT/HCPCS: 93306